=== PATIENT | male | born 1955 | race Caucasian/White ===

== ENCOUNTER 2016-08-13 16:57 | Inpatient (IN) | payer MEDICAID ==
[~2016-08-13] VITALS: Ht 177.8 cm; Wt 68.0 kg
[2016-08-13] MEDS ORDERED: Ampicillin/Sulbactam Sod 3 GM in NS 110 ML IV SCH (17:00)
[2016-08-13 17:15] VITALS: BP 104/64
[2016-08-13] MEDS ORDERED: Acetaminophen 650 MG SUPP RECTAL ONE (17:15)
[2016-08-13] MEDS ORDERED: Thiamine HCl 100 MG in D5W 55 ML IVPB ONE (17:15)
[2016-08-13] MEDS ORDERED: Thiamine HCl 100mg/ml Inj ONE (17:17)
[2016-08-13] MEDS ORDERED: Unasyn 3gm Inj ONE (17:17)
[2016-08-13 17:28] LABS: MEAN CORPUSCULAR HEMOGLOBIN 30.8 PG (27.0-31.0); MEAN CORPUSCULAR HGB CONC 32.3 G/DL (32.0-36.0); MEAN CORPUSCULAR VOLUME 96 FL (80-99); MEAN PLATELET VOLUME 9.1 FL (6.5-10.1); PLATELET COUNT 245 K/UL (150-450); RED BLOOD COUNT 4.65 M/UL (4.70-6.10); RED CELL DISTRIBUTION WIDTH 14.1 % (11.6-14.8)
[2016-08-13 17:29] LABS: LYMPHOCYTES % (AUTO) 5.3 % (20.0-45.0); MONOCYTES % (AUTO) 7.6 % (1.0-10.0); NEUTROPHILS % (AUTO) 85.5 % (45.0-75.0)
[2016-08-13 17:30] LABS: BASOPHILS % (AUTO) 1.2 % (0.0-2.0); EOSINOPHILS % (AUTO) 0.5 % (0.0-3.0)
[2016-08-13] MEDS: metroNIDAZOLE 500mg 100 ML IV SCH ×2 (17:30→22:27)
[2016-08-13 17:42] LABS: TROPONIN I < 0.30 ng/mL (<=0.30)
[2016-08-13 17:45] LABS: ALANINE AMINOTRANSFERASE 41 U/L (3-41); ANION GAP 17 (5-15); ASPARTATE AMINO TRANSFERASE 247 U/L (5-40); CALCIUM 11.5 mg/dL (8.6-10.2); CARBON DIOXIDE 25 mEQ/L (20-30); CHLORIDE 95 mEQ/L (98-107); CREATININE 1.3 mg/dL (0.7-1.2); GLOMERULAR FILTRATION RATE 56.3 mL/min (>60); HEMOLYSIS 0; POTASSIUM 3.4 mEQ/L (3.4-4.9); SODIUM 137 mEQ/L (135-145)
[2016-08-13 17:48] LABS: REFLEX LACTIC ACID YES OR NO YES
[2016-08-13 17:56] LABS: CKMB < 1.5 ng/mL (< 6.7)
[2016-08-13 18:29] VITALS: BP 89/43
[2016-08-13] MEDS ORDERED: PREDNISONE20 MG ORAL (18:46)
--- NOTE | 2016-08-13 18:48 | Emergency Room Report ---
History of Present Illness General Chief Complaint: Altered Level of Consciousness Source: Patient, EMS Present Illness HPI Patient is a 61-year-old male presented after increased level of consciousness. Patient was brought in by EMS. Patient prior history of unknown type of cancer which was reportedly stage IV. Patient had the been previously ambulatory and had altered level consciousness. The patient had not been noted to be febrile. The patient was noted be less responsive than his neighbor called EMS. Allergies: Coded Allergies: No Known Allergies (Unverified , 08/13/16) Patient History Past Medical History: see triage record Reviewed Nursing Documentation: PMH: Agreed, PSxH: Agreed Nursing Documentation-PM Past Medical History: No History, Except For Hx Cancer: Yes Review of Systems All Other Systems: negative except mentioned in HPI Physical Exam Vital Signs Date Time Temp Pulse Resp B/P Pulse Ox O2 Delivery O2 Flow Rate FiO2 08/13/16 16:53 110 21 88/54 97 08/13/16 17:15 101.8 08/13/16 18:29 Nasal Cannula 2.0 Sp02 EP Interpretation: reviewed, normal General Appearance: normal inspection, well appearing, moderate distress Head: atraumatic ENT: normal ENT inspection, hearing grossly normal, normal voice Neck: normal inspection, full range of motion, supple, no bony tend Respiratory: normal inspection, lungs clear, normal breath sounds, no respiratory distress, no retraction, no wheezing Cardiovascular #1: regular rate, rhythm, no edema Gastrointestinal: normal inspection, normal bowel sounds, non tender, soft, no guarding, no hernia Genitourinary: no CVA tenderness Musculoskeletal: normal inspection, back normal, normal range of motion Neurologic: responsive, motor weakness, other - lethargic, dry mucous membranes Psychiatric: normal inspection, judgement/insight normal, mood/affect normal Skin: normal inspection, normal color, no rash Medical Decision Making Diagnostic Impression: Primary Impression: Altered level of consciousness Additional Impressions: Severe sepsis Dehydration ER Course Patient presented for altered mental status.Differential diagnosis included but was not limited to ischemic stroke, subarachnoid hemorrhage, hypoglycemia, spinal cord injury, neurodegenerative disorder, urinary tract infection, hypoxemia.Because of complexity of patient's case laboratory testing and imaging studies were ordered. The patient noted have initially low blood pressure as well as a high fever. The patient started on IV fluids and IV antibiotics. The patient is present septic. The patient was noted to have some improvement in his mental status.Patient was given IV thiamine for altered mental status. Chest x-ray one view interpreted by me showed no evidence of acute infiltrate there is noted to be some nodular lesions to the left lung. The patient started on IV fluids and given IV antibiotics. Dr. Amado Scott was contacted for inpatient management. Laboratory Tests Test 08/13/16 17:00 White Blood Count 13.0 K/UL (4.8-10.8) H Red Blood Count 4.65 M/UL (4.70-6.10) L Hemoglobin 14.4 G/DL (14.2-18.0) Hematocrit 44.4 % (42.0-52.0) Mean Corpuscular Volume 96 FL (80-99) Mean Corpuscular Hemoglobin 30.8 PG (27.0-31.0) Mean Corpuscular Hemoglobin Concent 32.3 G/DL (32.0-36.0) Red Cell Distribution Width 14.1 % (11.6-14.8) Platelet Count 245 K/UL (150-450) Mean Platelet Volume 9.1 FL (6.5-10.1) Neutrophils (%) (Auto) 85.5 % (45.0-75.0) H Lymphocytes (%) (Auto) 5.3 % (20.0-45.0) L Monocytes (%) (Auto) 7.6 % (1.0-10.0) Eosinophils (%) (Auto) 0.5 % (0.0-3.0) Basophils (%) (Auto) 1.2 % (0.0-2.0) Sodium Level 137 mEQ/L (135-145) Potassium Level 3.4 mEQ/L (3.4-4.9) Chloride Level 95 mEQ/L (98-107) L Carbon Dioxide Level 25 mEQ/L (20-30) Anion Gap 17 (5-15) H Blood Urea Nitrogen 31 mg/dL (7-23) H Creatinine 1.3 mg/dL (0.7-1.2) H Estimate Glomerular Filtration Rate 56.3 mL/min (>60) Glucose Level 99 mg/dL (74-106) Lactic Acid Level 3.10 mmol/L (0.66-2.22) H Calcium Level 11.5 mg/dL (8.6-10.2) H Total Bilirubin 1.6 mg/dL (0.0-1.2) H Direct Bilirubin 1.0 mg/dL (0.1-0.3) H Aspartate Amino Transferase (AST) 247 U/L (5-40) H Alanine Aminotransferase (ALT) 41 U/L (3-41) Alkaline Phosphatase 491 U/L (40-129) H Total Creatine Kinase 222 U/L (38-174) H Creatine Kinase MB < 1.5 ng/mL (< 6.7) Creatine Kinase MB Relative Index Troponin I < 0.30 ng/mL (<=0.30) Total Protein 6.0 g/dL (6.6-8.7) L Albumin 3.1 g/dL (3.5-5.2) L Globulin 2.9 g/dL Albumin/Globulin Ratio 1.0 (1.0-2.7) EKG Diagnostic Results Rate: normal Rhythm: NSR ST Segments: other - inferior lateral st depression Chest X-Ray Diagnostic Results EP Interpretation: Yes Findings: no consolidation, no effusion, no pneumothorax Number of Views: 1 Last Vital Signs Date Time Temp Pulse Resp B/P Pulse Ox O2 Delivery O2 Flow Rate FiO2 08/13/16 18:29 100.0 85 20 89/43 95 Nasal Cannula 2.0 Status: unchanged Disposition: ADMITTED INPATIENT Condition: Serious Referrals: NOT CHOSEN IPA/,REFERRING (PCP) Barrington Thomas Aug 13, 2016 18:48
[2016-08-13 19:19] VITALS: BP 95/56
[2016-08-13 20:12] VITALS: BP 73/35
[2016-08-13 20:20] VITALS: BP 89/42
[2016-08-13] MEDS ORDERED: Miralax 17gm pkt ORAL PRN (20:30)
[2016-08-13] MEDS ORDERED: Zolpidem 5mg tab ORAL PRN (20:30)
[2016-08-13] MEDS ORDERED: LORazepam Inj 2mg/ml 1ml IV PRN (20:30)
[2016-08-13 21:37] LABS: KETONES,URINE 1+ (NEGATIVE); LEUKOCYTE ESTERASE ,URINE 1+ (NEGATIVE); NITRITE,URINE NEGATIVE (NEGATIVE); PH,URINE 5 (4.5-8.0); PROTEIN,URINE 3+ (NEGATIVE); UROBILINOGEN,URINE 8 MG/DL (0.0-1.0)
[2016-08-13 21:40] LABS: APPEARANCE,URINE SLIGHTLY CLOUDY
[2016-08-13 22:06] VITALS: BP 91/61
[2016-08-13 22:14] LABS: BACTERIA,URINE MANY /HPF; ICTOTEST POSITIVE; SQUAMOUS EPITHELIAL CELL,UR MODERATE /LPF (NONE/OCC)
[2016-08-13] MEDS: Morphine Sulfate 2mg/ml Inj IVP PRN (22:27)
[2016-08-13] MEDS: Heparin 5000 units/ml inj SUBQ SCH (22:32)
[2016-08-14] MEDS: Mylanta II UD 30ml ORAL PRN ×3 (00:50→14:23)
[2016-08-14] MEDS: Morphine Sulfate 2mg/ml Inj IVP PRN ×4 (03:20→22:05)
[2016-08-14 04:15] VITALS: BP 98/52
[2016-08-14 07:34] VITALS: BP 127/74
[2016-08-14 07:52] LABS: MEAN CORPUSCULAR HEMOGLOBIN 30.5 PG (27.0-31.0); MEAN CORPUSCULAR HGB CONC 32.9 G/DL (32.0-36.0); MEAN CORPUSCULAR VOLUME 93 FL (80-99); PLATELET COUNT 220 K/UL (150-450); RED BLOOD COUNT 4.41 M/UL (4.70-6.10); RED CELL DISTRIBUTION WIDTH 14.2 % (11.6-14.8); WHITE BLOOD COUNT 20.2 K/UL (4.8-10.8)
[2016-08-14 07:59] LABS: MAGNESIUM 1.5 mg/dL (1.7-2.5); PHOSPHORUS 3.4 mg/dL (2.5-4.8); URIC ACID 5.6 mg/dL (3.0-7.5)
[2016-08-14 08:09] LABS: CORTISOL LC 10.8 ug/dL (.)
[2016-08-14] MEDS: Heparin 5000 units/ml inj SUBQ SCH ×2 (08:19→20:28)
[2016-08-14 08:24] LABS: HEMOGLOBIN A1C 5.2 % (< 6.0)
[2016-08-14 08:26] LABS: ALANINE AMINOTRANSFERASE 42 U/L (3-41); ANION GAP 18 (5-15); ASPARTATE AMINO TRANSFERASE 264 U/L (5-40); CALCIUM 11.5 mg/dL (8.6-10.2); CARBON DIOXIDE 24 mEQ/L (20-30); CHLORIDE 95 mEQ/L (98-107); CREATININE 1.2 mg/dL (0.7-1.2); GLOMERULAR FILTRATION RATE > 60 mL/min (>60); POTASSIUM 3.6 mEQ/L (3.4-4.9); SODIUM 137 mEQ/L (135-145); TOTAL PROTEIN 5.6 g/dL (6.6-8.7)
[2016-08-14] MEDS ORDERED: Tubing IV Secondary IV ONE (09:10)
[2016-08-14] MEDS ORDERED: NS 275ml ONE (09:10)
[2016-08-14 09:42] LABS: BAND NEUTROPHILS % (MANUAL) 9 % (0-8); LYMPHOCYTES % (MANUAL) 6 % (20-45); NEUTROPHILS % (MANUAL) 75 % (45-75); TOTAL CELLS COUNTED 100
[2016-08-14 09:43] LABS: ANISOCYTOSIS 1+; BASOPHILS % (MANUAL) 0 % (0-2); EOSINOPHILS % (MANUAL) 0 % (0-3); PLATELET ESTIMATE ADEQUATE; PLATELET MORPHOLOGY NORMAL
--- NOTE | 2016-08-14 09:56 | Diagnostic Imaging Report ---
Indication: Shortness of breath Technique: Single portable AP view of the chest. Findings: Comparison: None. 1 cm calcified nodule left lung base. 1 cm calcified nodule left hilum. Aortic arch mildly calcified. The bones and extra pulmonary soft tissues, cardiomediastinal silhouette, pulmonary vasculature and parenchyma, and pleural surfaces are otherwise unremarkable. IMPRESSION: No evidence of acute cardiopulmonary disease Calcified old granulomatous disease Aortosclerosis.
[2016-08-14] MEDS ORDERED: Morphine Sulfate 2mg/ml Inj IVP ONE (10:15)
[2016-08-14 10:37] LABS: CHOLESTEROL 64 mg/dL (< 200); CHOLESTEROL/HDL RATIO 4.6 (3.3-4.4); LDL CHOLESTEROL (CALC.) 29 mg/dL (60-99)
[2016-08-14 11:35] VITALS: BP 106/61
--- NOTE | 2016-08-14 13:30 | Consultation ---
History of Present Illness General Date patient seen: Aug 14, 2016 Time patient seen: 13:00 Chief Complaint: Altered Level of Consciousness Referring physician: dr Scott Reason for Consultation: in hospital management Present Illness HPI 61-year-old male with stage 4 advanced metastatic cancer of unknown origin, presented with increased level of consciousness. Patient was brought in by EMS. after his neighbors were concerned with change in LOC and called paramedics Patient had been previously ambulatory. Workup i ED revealed leukocytosis elevated lactic acid, hypercalcemia, hypomagnesemia, elevated LFT/bili CXR negative UA with evidence of UTI patient was transferred to [facility] for further management leukocytosis with trend up today, afebrile, intractable pain, not relieved with current regimen Allergies: Coded Allergies: No Known Allergies (Unverified , 08/13/16) Medication History Scheduled Prednisone* (Prednisone*), 20 MG ORAL DAILY, (Reported) Patient History History Provided By: Patient Healthcare decision maker N Resuscitation status Full Code Advanced Directive on File Past Medical/Surgical History Past Medical/Surgical History: (1) Metastatic cancer Review of Systems Constitutional: Reports: weakness Eye: Reports: no symptoms ENT: Reports: no symptoms Respiratory: Reports: no symptoms Cardiovascular: Reports: no symptoms Gastrointestinal: Reports: abdominal pain Genitourinary: Reports: frequency Skin: Reports: no symptoms Psychiatric: Reports: anxiety, depressed feelings Endocrine: Reports: no symptoms Hematologic/Lymphatic: Reports: no symptoms Physical Exam General Appearance: alert, cachetic Lines, tubes and drains: peripheral HEENT: normocephalic, atraumatic, anicteric, mucous membranes moist Neck: non-tender, normal alignment Respiratory/Chest: chest wall non-tender, lungs clear, no respiratory distress , no accessory muscle use Cardiovascular/Chest: normal rate, regular rhythm Abdomen: normal bowel sounds - mild difsued tenderness, no rebound, no guarding , soft Extremities: normal range of motion, no calf tenderness, normal capillary refill Skin Exam: warm/dry Neurologic: alert, oriented x 3, responsive Musculoskeletal: normal muscle bulk Last 24 Hour Vital Signs Date Time Temp Pulse Resp B/P Pulse Ox O2 Delivery O2 Flow Rate FiO2 08/14/16 13:02 97.7 08/14/16 11:35 97.7 77 18 106/61 95 Room Air 08/14/16 10:49 97.7 08/14/16 08:00 78 08/14/16 07:34 97.0 80 18 127/74 95 Room Air 08/14/16 04:23 72 08/14/16 04:15 97.0 62 20 98/52 95 Room Air 08/13/16 23:37 74 08/13/16 22:06 98.4 80 19 91/61 93 Room Air 08/13/16 20:55 100.0 80 16 89/42 98 Nasal Cannula 2.0 08/13/16 20:20 80 16 89/42 98 Nasal Cannula 2.0 08/13/16 20:12 86 16 73/35 98 Nasal Cannula 2.0 08/13/16 19:19 85 16 95/56 95 Nasal Cannula 2.0 08/13/16 18:29 100.0 85 20 89/43 95 Nasal Cannula 2.0 08/13/16 17:59 100.0 08/13/16 17:15 101.8 90 21 104/64 97 08/13/16 16:53 110 21 88/54 97 Intake and Output 08/13/16 08/14/16 19:00 07:00 Intake Total 2210 ml 1605 ml Output Total 400 ml Balance 2210 ml 1205 ml Intake Oral 505 ml IV Total 2210 ml 1100 ml Output Urine Total 400 ml # Voids 50 Laboratory Tests Test 08/13/16 17:00 08/13/16 19:20 08/13/16 20:40 08/14/16 06:32 White Blood Count 13.0 K/UL (4.8-10.8) H 20.2 K/UL (4.8-10.8) #H Red Blood Count 4.65 M/UL (4.70-6.10) L 4.41 M/UL (4.70-6.10) L Hemoglobin 14.4 G/DL (14.2-18.0) 13.5 G/DL (14.2-18.0) L Hematocrit 44.4 % (42.0-52.0) 40.9 % (42.0-52.0) L Mean Corpuscular Volume 96 FL (80-99) 93 FL (80-99) Mean Corpuscular Hemoglobin 30.8 PG (27.0-31.0) 30.5 PG (27.0-31.0) Mean Corpuscular Hemoglobin Concent 32.3 G/DL (32.0-36.0) 32.9 G/DL (32.0-36.0) Red Cell Distribution Width 14.1 % (11.6-14.8) 14.2 % (11.6-14.8) Platelet Count 245 K/UL (150-450) 220 K/UL (150-450) Mean Platelet Volume 9.1 FL (6.5-10.1) 9.0 FL (6.5-10.1) Neutrophils (%) (Auto) 85.5 % (45.0-75.0) H % (45.0-75.0) Lymphocytes (%) (Auto) 5.3 % (20.0-45.0) L % (20.0-45.0) Monocytes (%) (Auto) 7.6 % (1.0-10.0) % (1.0-10.0) Eosinophils (%) (Auto) 0.5 % (0.0-3.0) % (0.0-3.0) Basophils (%) (Auto) 1.2 % (0.0-2.0) % (0.0-2.0) Sodium Level 137 mEQ/L (135-145) 137 mEQ/L (135-145) Potassium Level 3.4 mEQ/L (3.4-4.9) 3.6 mEQ/L (3.4-4.9) Chloride Level 95 mEQ/L (98-107) L 95 mEQ/L (98-107) L Carbon Dioxide Level 25 mEQ/L (20-30) 24 mEQ/L (20-30) Anion Gap 17 (5-15) H 18 (5-15) H Blood Urea Nitrogen 31 mg/dL (7-23) H 31 mg/dL (7-23) H Creatinine 1.3 mg/dL (0.7-1.2) H 1.2 mg/dL (0.7-1.2) Estimat Glomerular Filtration Rate 56.3 mL/min (>60) > 60 mL/min (>60) Glucose Level 99 mg/dL (74-106) 78 mg/dL (74-106) Plasma/Serum Osmolality Pending Lactic Acid Level 3.10 mmol/L (0.66-2.22) H 2.20 mmol/L (0.66-2.22) Calcium Level 11.5 mg/dL (8.6-10.2) H 11.5 mg/dL (8.6-10.2) H Total Bilirubin 1.6 mg/dL (0.0-1.2) H 1.6 mg/dL (0.0-1.2) H Direct Bilirubin 1.0 mg/dL (0.1-0.3) H 1.0 mg/dL (0.1-0.3) H Aspartate Amino Transf (AST/SGOT) 247 U/L (5-40) H 264 U/L (5-40) H Alanine Aminotransferase (ALT/SGPT) 41 U/L (3-41) 42 U/L (3-41) H Alkaline Phosphatase 491 U/L (40-129) H 412 U/L (40-129) H Total Creatine Kinase 222 U/L (38-174) H 386 U/L (38-174) H Creatine Kinase MB < 1.5 ng/mL (< 6.7) Creatine Kinase MB Relative Index Troponin I < 0.30 ng/mL (<=0.30) Total Protein 6.0 g/dL (6.6-8.7) L 5.6 g/dL (6.6-8.7) L Albumin 3.1 g/dL (3.5-5.2) L 2.8 g/dL (3.5-5.2) L Globulin 2.9 g/dL 2.8 g/dL Albumin/Globulin Ratio 1.0 (1.0-2.7) 1.0 (1.0-2.7) Free Triiodothyronine Pending Cortisol 10.8 ug/dL (.) Urine Color Aracelis Urine Appearance Slightly cloudy Urine pH 5 (4.5-8.0) Urine Specific [place] 1.015 (1.005-1.035) Urine Protein 3+ (NEGATIVE) H Urine Glucose (UA) Negative (NEGATIVE) Urine Ketones 1+ (NEGATIVE) H Urine Occult Blood 2+ (NEGATIVE) H Urine Nitrite Negative (NEGATIVE) Urine Bilirubin 2+ (NEGATIVE) H Urine Ictotest Positive Urine Urobilinogen 8 MG/DL (0.0-1.0) H Urine Leukocyte Esterase 1+ (NEGATIVE) H Urine RBC 5-10 /HPF (0 - 0) H Urine WBC 10-15 /HPF (0 - 0) H Urine Squamous Epithelial Cells Moderate /LPF (NONE/OCC) H Urine Bacteria Many /HPF (NONE) H Urine Eosinophils None seen Urine Random Sodium 17 mmol/L Urine Random Chloride 20 mmol/L Urine Potassium Timed 52 mmol/L Differential Total Cells Counted 100 Neutrophils % (Manual) 75 % (45-75) Lymphocytes % (Manual) 6 % (20-45) L Monocytes % (Manual) 10 % (1-10) Eosinophils % (Manual) 0 % (0-3) Basophils % (Manual) 0 % (0-2) Band Neutrophils 9 % (0-8) H Platelet Estimate Adequate Platelet Morphology Normal Anisocytosis 1+ Hemoglobin A1c 5.2 % (< 6.0) Uric Acid 5.6 mg/dL (3.0-7.5) Phosphorus Level 3.4 mg/dL (2.5-4.8) Magnesium Level 1.5 mg/dL (1.7-2.5) L Triglycerides Level 104 mg/dL (< 150) Cholesterol Level 64 mg/dL (< 200) LDL Cholesterol 29 mg/dL (60-99) L HDL Cholesterol 14 mg/dL (> 60) Cholesterol/HDL Ratio 4.6 (3.3-4.4) H Thyroid Stimulating Hormone (TSH) 1.800 uIU/mL (0.300-4.500) Free Thyroxine 1.06 ng/dL (0.86-1.85) Microbiology Date/Time Source Procedure Growth Status 08/13/16 20:40 Urine,Clean Catch Urine Culture - Preliminary NO GROWTH Resulted Height (Feet): 5 Height (Inches): 10.00 Weight (Pounds): 150 Medications Current Medications Medications (Trade) Dose Ordered Sig/Melvin Route PRN Reason Start Time Stop Time Status Last Admin Dose Admin Acetaminophen (Tylenol) 650 mg Q4H PRN ORAL fever 08/13/16 20:30 09/12/16 20:29 Al Hydroxide/Mg Hydroxide (Mylanta II) 30 ml Q6H PRN ORAL dyspepsia 08/13/16 20:30 09/12/16 20:29 08/14/16 08:30 Clonidine HCl (Catapres) 0.1 mg Q4H PRN ORAL For High Blood Pressure 08/13/16 20:30 09/12/16 20:29 Dextrose (Dextrose 50%) STAT PRN IV Hypoglycemia 08/13/16 20:30 09/12/16 20:29 Heparin Sodium (Porcine) (Heparin 5000 units/ml) 5,000 units EVERY 12 HOURS SUBQ 08/13/16 21:00 09/12/16 20:59 08/14/16 08:19 Lorazepam (Ativan 2mg/ml 1ml) 0.5 mg Q4H PRN IV For Anxiety 08/13/16 20:30 08/20/16 20:29 Morphine Sulfate (Morphine Sulfate) 2 mg Q3H PRN IVP For Pain 08/14/16 14:00 08/21/16 13:59 Ondansetron HCl (Zofran) 4 mg Q6H PRN IVP Nausea & Vomiting 08/13/16 20:30 09/12/16 20:29 Polyethylene Glycol (Miralax) 17 gm HSPRN PRN ORAL Constipation 08/13/16 20:30 09/12/16 20:29 Zolpidem Tartrate (Ambien) 5 mg HSPRN PRN ORAL Insomnia 08/13/16 20:30 09/12/16 20:29 Assessment/Plan Assessment/Plan ASSESSMENT advanced metastic cancer stage 4 sepsis possible UTI lactic acidosis acute encephalopathy dehydration hypercalcemia of malignancy elevated transaminase DIAZ 2 to dehydration intractable pain PLAN OF CARE tele start IVF monitor renal parameters , lytes replace Mg give Aredia Venous Duplex BLE pain management, increase dose pain specialist as per PMD O2 HHN prn CXR negative empiric abx ; fup with cx DVT prophylaxis recommend to get CT chest abdomen and pelvis to delineate origin of malignancy, however will hydrate first, to get creat down to normal and then get CT with contrast patient apparently was on hospice service prior to admission and wants to go back to hospice afterwards case discussed and evaluated by supervising physician Anatoly ([email or web address])Meenakshi NP Aug 14, 2016 13:30
--- NOTE | 2016-08-14 13:50 | History & Physical ---
History and Physical History & Physicial Dictated for Int Med-Dr Scott no. [id number]. LAMAR HERRING Aug 14, 2016 13:50
[2016-08-14] MEDS ORDERED: cefTRIAXone 1 GM in D5W 55 ML IVPB SCH (14:00)
[2016-08-14] MEDS ORDERED: Morphine Sulfate 2mg/ml Inj IVP PRN (14:00)
[2016-08-14] MEDS ORDERED: Cefepime HCl 1 GM in D5W 110 ML IVPB SCH (14:00)
[2016-08-14 14:12] LABS: FREE TRIIODOTHYRONINE 2.6 pg/mL (2.0-4.4)
[2016-08-14] MEDS ORDERED: Vancomycin 1250mg/D5W 275ml IVPB ONE ×2 (16:00)
[2016-08-14 16:29] VITALS: BP_SYST 107; BP_SYST 121; BP_DIAS 68; BP_DIAS 76
[2016-08-14] MEDS ORDERED: Pamidronate Disodium Inj 60 MG in Sodium Chloride 550 ML IVPB ONE (17:30)
[2016-08-14 18:05] LABS: AMMONIA 47 umol/L (16-60)
[2016-08-14 18:09] LABS: ANION GAP 16 (5-15); CALCIUM 11.3 mg/dL (8.6-10.2); CARBON DIOXIDE 24 mEQ/L (20-30); CHLORIDE 97 mEQ/L (98-107); CREATININE 0.8 mg/dL (0.7-1.2); GLOMERULAR FILTRATION RATE > 60 mL/min (>60); HEMOLYSIS 0; POTASSIUM 3.4 mEQ/L (3.4-4.9); SODIUM 137 mEQ/L (135-145)
[2016-08-14] MEDS ORDERED: Mylanta II UD 30ml ORAL PRN (19:15)
[2016-08-14] MEDS ORDERED: LORazepam Inj 2mg/ml 1ml IV PRN (19:30)
[2016-08-14 20:00] VITALS: BP 116/70
[2016-08-14] MEDS ORDERED: Miralax 17gm pkt ORAL PRN (20:30)
--- NOTE | 2016-08-14 20:58 | History and Physical Report ---
DATE OF ADMISSION: 08/13/2016 CHIEF COMPLAINT: The patient is a 61-year-old white male with history of metastatic prostate cancer, who presents with chief complaint of syncopal episode. HISTORY OF PRESENT ILLNESS: The patient lives alone. The patient has a history of prostate cancer with metastases. The patient states he is currently on chemotherapy for prostate cancer. The patient was brought in by a friend yesterday, August 13, 2016. The friend became concerned after not speaking to the patient for one day. The patient was found unconscious by the friend. EMS was called. The patient was transported to [facility]. The patient was found to have urinary tract infection. The patient is admitted with syncopal episode and probable sepsis secondary to urinary tract infection. REVIEW OF SYSTEMS: Constitutional: The patient denies weight loss or weight gain. The patient denies fevers or chills. HEENT: The patient denies ear or throat pain. Cardiovascular: The patient denies palpitations or chest pain. Chest: The patient denies wheeze or shortness of breath. Abdomen: The patient denies nausea, vomiting, diarrhea, or constipation. Genitourinary: The patient denies dysuria or increased frequency of urination. Neuromuscular: The patient complains of syncopal episode. The patient denies seizures or generalized weakness. PAST MEDICAL HISTORY: Significant for prostate cancer with metastases. PAST SURGICAL HISTORY: The patient denies. CURRENT MEDICATION: Prednisone 20 mg one tablet p.o. daily. ALLERGIES: No known drug allergies. SOCIAL HISTORY: The patient is single and lives alone. The patient admits to tobacco use of one pack per day. The patient denies alcohol use. PHYSICAL EXAMINATION: VITAL SIGNS: Temperature 97.0, respirations 18, pulse 80, and blood pressure 122/74. GENERAL: The patient is a well-developed and well-nourished thin-appearing white male, in no apparent distress. HEENT: Eyes, pupils are equal and responsive to light and accommodation. Extraocular movements are intact. NECK: Supple without lymphadenopathy. CHEST: Lungs are clear to auscultation bilaterally without wheezes or rales. CARDIOVASCULAR: Regular rhythm and rate. S1 and S2 normal without murmurs, rubs, or gallops. ABDOMEN: Soft, slightly distended with positive bowel sounds. No evidence of hepatosplenomegaly. Currently, no rebound or guarding. EXTREMITIES: Negative for clubbing, cyanosis, or edema. RECTAL/GENITAL: Refused. NEUROLOGICAL: Cranial nerves II through XII are grossly intact without focal deficits. Motor strength is 5/5 bilaterally. Deep tendon reflexes are 2+ plantar. LABORATORY STUDIES: WBC 13.2, hemoglobin 14.4, hematocrit 44.4, and platelets 245,000. Sodium 137, potassium 3.4, chloride 95, CO2 25, BUN 31, and creatinine 1.3. Glucose 99. Liver function tests were elevated with AST of 247, alkaline phosphatase 491, total bilirubin 1.6, and direct bilirubin 1.0. Troponin is less than 0.3. Urinalysis showed 2+ occult blood, 1+ ketones, 2+ bilirubin, and 1+ leukocyte esterase with 10 to 15 wbc's. ASSESSMENT: This is a 61-year-old white male: 1. Altered mental status. 2. Syncopal episode. 3. Prostate cancer with metastases. 4. Elevated liver function tests. 5. Urinary tract infection. 6. Probable sepsis. TREATMENT: 1. Syncopal episode/altered mental status. This may be secondary to dehydration versus severe sepsis. The patient has been started empirically on intravenous vancomycin and cefepime. The patient appears to be clearing at this point. 2. Prostate cancer with metastases. Hematology/Oncology consultation will be obtained with Dr. Ferro. The patient states he is currently on chemotherapy. We will follow recommendations of Oncology. 3. Elevated liver function tests. Gastroenterology consultation obtained with Dr. Randolph Goldman. A CT scan of the abdomen is pending. The patient may be obstructed given the abnormal liver function tests. We will follow recommendations of Gastroenterology. 4. Urinary tract infection/sepsis. As above, the patient has been started empirically on vancomycin and cefepime. Urine culture is pending. Michael Martin M.D. DR: KAMRON JOB#: [id number] CC:
[2016-08-14] MEDS ORDERED: Heparin 5000 units/ml inj SUBQ SCH (21:00)
[2016-08-14] MEDS ORDERED: Zolpidem 5mg tab ORAL PRN (21:00)
--- NOTE | 2016-08-14 22:48 | Consultation ---
DATE OF CONSULTATION: 08/14/2016 HEMATOLOGY/ONCOLOGY CONSULTATION CONSULTING PHYSICIAN: Marlon Ferro M.D. REFERRING PHYSICIANS: Michael Martin M.D. and Amado Scott M.D. REASON FOR CONSULTATION: Metastatic prostate cancer. CURRENT COMPLAINT AND HISTORY OF PRESENT ILLNESS: Dear Dr. Martin and Dr Scott, Today, I had an opportunity to see one of your patients, who as you well aware 61-year-old delightful gentleman with a past medical history remarkable for metastatic cancer, unknown origin. The patient was brought through emergency room by ambulance. Workup revealed hypercalcemia and elevated LFTs. He was ambulatory and he was encephalopathic, altered mental status. PAST MEDICAL HISTORY: none. CURRENT MEDICATIONS: Prednisone. FAMILY HISTORY: Noncontributory. SOCIAL HISTORY: No history of smoking. No history of alcohol abuse. No history of illicit drugs. REVIEW OF SYSTEMS: Unobtainable secondary to the patient's confusion. PHYSICAL EXAMINATION: VITAL SIGNS: T-max 97, respiratory rate 20, heart rate 80, and blood pressure 130/80. HEENT: Head, normocephalic and atraumatic. NECK: Supple. No thyroid enlargement. No lymphadenopathy. LUNGS: Decreased bowel sounds bilaterally with few rhonchi in the bases. HEART: S1 and S2 regular. ABDOMEN: Full. Benign. No organomegaly present. Bowel sounds are present. EXTREMITIES: No cyanosis, clubbing, or edema. DIAGNOSTIC DATA: Chest x-ray revealed 1 cm calcified nodule in the left lung at the base. LABORATORY DATA: Labs revealed creatinine 1.2. Calcium 11.5. Total bilirubin 1.6 and direct bilirubin 1.0. WBC 20.2, hemoglobin 13.5, hematocrit 40.9, and platelet count 220,000. IMPRESSION: 1. Hypercalcemia. 2. History of advanced metastatic cancer, unknown origin stage IV. 3. Encephalopathy. 4. Mental status changes. 5. Bilirubinemia. 6. Leukocytosis. 7. Elevated liver function tests. 8. Failure to thrive. RECOMMENDATION: 1. CT scan chest, abdomen, and pelvis with contrast. 2. Venous Doppler bilateral lower extremities to rule out DVT. 3. Check tumor markers. 4. Heparin subcutaneous for DVT prophylaxis. 5. Antibiotic IV. 6. Rule out metastatic bony disease. 7. Rule out multiple myeloma with bony lesions. 8. Check parathyroid hormone, rule out parathyroid adenoma. 9. Skin care. 10. Nutrition. 11. Close followup. Marlon Ferro MD DR: SANDEEP JOB#: [id number] CC:
[2016-08-15] VITALS (30 sets, daily range): BP systolic 46–122; BP diastolic 16–79
[2016-08-15] MEDS: Cefepime HCl 1 GM in D5W 110 ML IVPB SCH ×4 (01:28→21:15)
[2016-08-15] MEDS: Morphine Sulfate 2mg/ml Inj IVP PRN ×4 (01:28→13:08)
[2016-08-15] MEDS: Phenylephrine 50 MG in D5W 245 ML IV SCH (03:00)
[2016-08-15] MEDS ORDERED: Vancomycin 750mg/D5W 275ml IVPB SCH ×2 (04:00)
[2016-08-15] MEDS ORDERED: Vancomycin 750 MG in D5W 275 ML IVPB SCH ×2 (04:00→22:00)
[2016-08-15 06:15] LABS: BASOPHILS % (AUTO) 0.5 % (0.0-2.0); EOSINOPHILS % (AUTO) 0.2 % (0.0-3.0); LYMPHOCYTES % (AUTO) 11.4 % (20.0-45.0); MEAN CORPUSCULAR HEMOGLOBIN 30.6 PG (27.0-31.0); MEAN CORPUSCULAR HGB CONC 32.9 G/DL (32.0-36.0); MEAN CORPUSCULAR VOLUME 93 FL (80-99); MEAN PLATELET VOLUME 9.3 FL (6.5-10.1); MONOCYTES % (AUTO) 13.2 % (1.0-10.0); NEUTROPHILS % (AUTO) 74.7 % (45.0-75.0); PLATELET COUNT 244 K/UL (150-450); RED BLOOD COUNT 3.27 M/UL (4.70-6.10); WHITE BLOOD COUNT 15.7 K/UL (4.8-10.8)
[2016-08-15 06:33] LABS: ALANINE AMINOTRANSFERASE 39 U/L (3-41); ANION GAP 16 (5-15); ASPARTATE AMINO TRANSFERASE 208 U/L (5-40); CALCIUM 11.7 mg/dL (8.6-10.2); CARBON DIOXIDE 24 mEQ/L (20-30); CHLORIDE 100 mEQ/L (98-107); CREATININE 0.8 mg/dL (0.7-1.2); GLOMERULAR FILTRATION RATE > 60 mL/min (>60); HEMOLYSIS 1; POTASSIUM 3.9 mEQ/L (3.4-4.9); SODIUM 140 mEQ/L (135-145)
--- NOTE | 2016-08-15 08:25 | General Progress Note ---
Assessment/Plan Assessment/Plan IMPRESSION: 1. Hypercalcemia. 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 History of advanced metastatic cancer, unknown Stage - recently on chemo 3. Encephalopathy. 4. Mental status changes. 5. Bilirubinemia. 6. Leukocytosis. 7. Elevated liver function tests. 8. Failure to thrive. RECOMMENDATION: 1. CT scan chest, abdomen, and pelvis with contrast pending 2. Venous Doppler bilateral lower extremities to rule out DVT. 3. Check tumor markers. 4. Heparin subcutaneous for DVT prophylaxis. 5. Antibiotic IV. 6. Rule out metastatic bony disease. 7. Rule out multiple myeloma with bony lesions. 8. Appreciate pulm recs 9. Skin care. 10. Nutrition. 11. Follow from onc perspective Subjective Constitutional: Reports: no symptoms HEENT: Reports: no symptoms Cardiovascular: Reports: no symptoms Respiratory: Reports: no symptoms Gastrointestinal/Abdominal: Reports: no symptoms Genitourinary: Reports: no symptoms Neurologic/Psychiatric: Reports: anxiety Endocrine: Reports: no symptoms Hematologic/Lymphatic: Reports: anemia Allergies: Coded Allergies: No Known Allergies (Unverified , 08/13/16) Subjective mental status toady is better, no fevers or chills, no night sweats reported Objective Last 24 Hour Vital Signs Date Time Temp Pulse Resp B/P Pulse Ox O2 Delivery O2 Flow Rate FiO2 08/15/16 04:00 97.5 85 19 115/71 96 Room Air 08/15/16 00:00 97.9 101 19 110/71 98 Room Air 08/14/16 20:00 97.9 98 18 116/70 95 Room Air 08/14/16 16:29 97.7 84 18 121/76 95 Room Air 08/14/16 13:02 97.7 08/14/16 12:00 78 08/14/16 11:35 97.7 77 18 106/61 95 Room Air 08/14/16 10:49 97.7 Intake and Output 08/14/16 08/15/16 19:00 07:00 Intake Total 603.333 ml 928.333 ml Output Total 400 ml 1600 ml Balance 203.333 ml -671.667 ml Intake Oral 60 ml IV Total 603.333 ml 868.333 ml Output Urine Total 400 ml 1600 ml Laboratory Tests 08/14/16 17:30: Erythrocyte Sedimentation Rate 70H, D-Dimer > 9000H, Sodium Level 137, Potassium Level 3.4, Chloride Level 97L, Carbon Dioxide Level 24, Anion Gap 16H , Blood Urea Nitrogen 34H, Creatinine 0.8, Estimat Glomerular Filtration Rate > 60, Glucose Level 123H, Calcium Level 11.3H, Calcium (Send out) [Pending], Ammonia 47, Total Protein (PEP) [Pending], Albumin (PEP) [Pending], Globulin ( PEP) [Pending], Albumin/Globulin Ratio [Pending], Cvcmw-9-Tdmufjdxc [Pending], Crpwg-0-Mnbmejgly [Pending], Beta Globulins [Pending], Beta Gamma Globulin [ Pending], PEP Abnormal Protein Bands [Pending], Protein Electrophoresis Interpret [Pending], Alpha Fetoprotein [Pending], Carcinoembryonic Antigen > 1000.0H, CA 19-9 Antigen > 1000H, Free Prostate Specific Antigen [Pending], Percent Free Prostate Specific Ag [Pending], Prostate Specific Antigen Total [ Pending], Parathyroid Hormone (Intact) [Pending], Immunoglobulin G [Pending], Immunoglobulin A [Pending], Immunoglobulin M [Pending], Immunofixation Screen [ Pending], Ccdm-tecd-4-Glycoprotein I IgM Ab [Pending] 08/15/16 05:00: Sodium Level 140, Potassium Level 3.9, Chloride Level 100, Carbon Dioxide Level 24, Anion Gap 16H, Blood Urea Nitrogen 48H, Creatinine 0.8, Estimat Glomerular Filtration Rate > 60, Glucose Level 108H, Calcium Level 11.7H, Albumin/Globulin Ratio 1.0, White Blood Count 15.7H, Red Blood Count 3.27L, Hemoglobin 10.0L, Hematocrit 30.4L, Mean Corpuscular Volume 93, Mean Corpuscular Hemoglobin 30.6, Mean Corpuscular Hemoglobin Concent 32.9, Red Cell Distribution Width 14.0, Platelet Count 244, Mean Platelet Volume 9.3, Neutrophils (%) (Auto) 74.7, Lymphocytes (%) (Auto) 11.4L, Monocytes (%) (Auto) 13.2H, Eosinophils (%) (Auto ) 0.2, Basophils (%) (Auto) 0.5, Magnesium Level 2.0, Total Bilirubin 1.0, Aspartate Amino Transf (AST/SGOT) 208H, Alanine Aminotransferase (ALT/SGPT) 39, Alkaline Phosphatase 358H, Total Protein 5.0L, Albumin 2.5L, Globulin 2.5 Height (Feet): 5 Height (Inches): 10.00 Weight (Pounds): 150 General Appearance: no apparent distress EENT: TMs normal Neck: normal inspection Cardiovascular: regular rhythm Respiratory/Chest: no respiratory distress Abdomen: soft Extremities: normal range of motion Edema: 1+ Leg (L), 1+ Leg (R) Edema: mild edema Neurologic: responsive Skin: warm/dry [place] Aug 15, 2016 08:25
[2016-08-15] MEDS ORDERED: Pamidronate Disodium Inj 60 MG in Sodium Chloride 550 ML IVPB ONE ×2 (08:30→17:30)
[2016-08-15] MEDS ORDERED: NS 275ml ONE (09:01)
[2016-08-15] MEDS ORDERED: Tubing IV Secondary IV ONE (09:01)
[2016-08-15] MEDS: Heparin 5000 units/ml inj SUBQ SCH (09:17)
--- NOTE | 2016-08-15 14:07 | Pulmonology Progress Note ---
Assessment/Plan Assessment/Plan ASSESSMENT advanced metastic cancer stage 4 sepsis possible UTI lactic acidosis acute encephalopathy dehydration hypercalcemia of malignancy elevated transaminase DIAZ 2 to dehydration intractable pain PLAN OF CARE MS floor IVF monitor renal parameters , lytes s/p Arediax1 08/14 , still hypercalcemia start Calcitonin Venous Duplex BLE pain management, pain specialist as per PMD discretion O2 HHN prn CXR negative empiric abx ; fup with cx DVT prophylaxis CT chest abdomen and pelvis to delineate origin of malignancy patient apparently was on hospice service prior to admission and wants to go back to hospice afterwards heme/onco follows tumor markers case discussed and evaluated by supervising physician Subjective Allergies: Coded Allergies: No Known Allergies (Unverified , 08/13/16) Subjective leukocytosis trending down heme/onco sen and evaluated hypercalcemia persist despite Aredia x 1 dose 08/14 Objective Last 24 Hour Vital Signs Date Time Temp Pulse Resp B/P Pulse Ox O2 Delivery O2 Flow Rate FiO2 08/15/16 12:00 97.7 70 18 120/79 96 Room Air 08/15/16 08:00 97.2 94 20 122/72 96 Room Air 08/15/16 04:00 97.5 85 19 115/71 96 Room Air 08/15/16 00:00 97.9 101 19 110/71 98 Room Air 08/14/16 20:00 97.9 98 18 116/70 95 Room Air 08/14/16 16:29 97.7 84 18 121/76 95 Room Air Intake and Output 08/14/16 08/15/16 19:00 07:00 Intake Total 603.333 ml 928.333 ml Output Total 400 ml 1600 ml Balance 203.333 ml -671.667 ml Intake Oral 60 ml IV Total 603.333 ml 868.333 ml Output Urine Total 400 ml 1600 ml Objective General Appearance: alert, cachetic Lines, tubes and drains: peripheral HEENT: normocephalic, atraumatic, anicteric, mucous membranes moist Neck: non-tender, normal alignment Respiratory/Chest: chest wall non-tender, lungs clear, no respiratory distress , no accessory muscle use Cardiovascular/Chest: normal rate, regular rhythm Abdomen: normal bowel sounds - mild difsued tenderness, no rebound, no guarding , soft Extremities: normal range of motion, no calf tenderness, normal capillary refill Skin Exam: warm/dry Neurologic: alert, oriented x 3, responsive Musculoskeletal: normal muscle bulk Microbiology Date/Time Source Procedure Growth Status 08/13/16 17:10 Blood Blood Culture - Preliminary NO GROWTH AFTER 24 HOURS Resulted 08/13/16 17:00 Blood Blood Culture - Preliminary NO GROWTH AFTER 24 HOURS Resulted 08/13/16 20:40 Urine,Clean Catch Urine Culture - Preliminary NO GROWTH AFTER 24 HOURS Resulted Laboratory Tests 08/14/16 17:30: Erythrocyte Sedimentation Rate 70H, D-Dimer > 9000H, Sodium Level 137, Potassium Level 3.4, Chloride Level 97L, Carbon Dioxide Level 24, Anion Gap 16H , Blood Urea Nitrogen 34H, Creatinine 0.8, Estimat Glomerular Filtration Rate > 60, Glucose Level 123H, Calcium Level 11.3H, Calcium (Send out) [Pending], Ammonia 47, Total Protein (PEP) [Pending], Albumin (PEP) [Pending], Globulin ( PEP) [Pending], Albumin/Globulin Ratio [Pending], Cmllp-9-Qiomheiar [Pending], Thdjt-3-Lmvellcqg [Pending], Beta Globulins [Pending], Beta Gamma Globulin [ Pending], PEP Abnormal Protein Bands [Pending], Protein Electrophoresis Interpret [Pending], Alpha Fetoprotein [Pending], Carcinoembryonic Antigen > 1000.0H, CA 19-9 Antigen > 1000H, Free Prostate Specific Antigen [Pending], Percent Free Prostate Specific Ag [Pending], Prostate Specific Antigen Total [ Pending], Parathyroid Hormone (Intact) [Pending], Immunoglobulin G [Pending], Immunoglobulin A [Pending], Immunoglobulin M [Pending], Immunofixation Screen [ Pending], Fcke-zvqv-4-Glycoprotein I IgM Ab [Pending] 08/15/16 05:00: Sodium Level 140, Potassium Level 3.9, Chloride Level 100, Carbon Dioxide Level 24, Anion Gap 16H, Blood Urea Nitrogen 48H, Creatinine 0.8, Estimat Glomerular Filtration Rate > 60, Glucose Level 108H, Calcium Level 11.7H, Albumin/Globulin Ratio 1.0, White Blood Count 15.7H, Red Blood Count 3.27L, Hemoglobin 10.0L, Hematocrit 30.4L, Mean Corpuscular Volume 93, Mean Corpuscular Hemoglobin 30.6, Mean Corpuscular Hemoglobin Concent 32.9, Red Cell Distribution Width 14.0, Platelet Count 244, Mean Platelet Volume 9.3, Neutrophils (%) (Auto) 74.7, Lymphocytes (%) (Auto) 11.4L, Monocytes (%) (Auto) 13.2H, Eosinophils (%) (Auto ) 0.2, Basophils (%) (Auto) 0.5, Magnesium Level 2.0, Total Bilirubin 1.0, Aspartate Amino Transf (AST/SGOT) 208H, Alanine Aminotransferase (ALT/SGPT) 39, Alkaline Phosphatase 358H, Total Protein 5.0L, Albumin 2.5L, Globulin 2.5 Current Medications Medications (Trade) Dose Ordered Sig/Melvin Route PRN Reason Start Time Stop Time Status Last Admin Dose Admin Acetaminophen (Tylenol) 650 mg Q4H PRN ORAL T>100.5 08/14/16 19:15 09/13/16 19:14 Al Hydroxide/Mg Hydroxide (Mylanta II) 30 ml Q6H PRN ORAL dyspepsia 08/14/16 19:15 09/13/16 19:14 08/15/16 01:34 Cefepime HCl 1 gm/ Dextrose 110 ml @ 220 mls/hr Q12HR@0200,1400 IVPB 08/15/16 02:00 08/22/16 01:59 08/15/16 01:28 Clonidine HCl (Catapres) 0.1 mg Q4H PRN ORAL SBP>160 08/14/16 19:15 09/13/16 19:14 Dextrose (Dextrose 50%) STAT PRN IV Hypoglycemia 08/14/16 19:15 09/13/16 19:14 Heparin Sodium (Porcine) (Heparin 5000 units/ml) 5,000 units EVERY 12 HOURS SUBQ 08/14/16 21:00 09/13/16 20:59 08/15/16 09:17 Lorazepam (Ativan 2mg/ml 1ml) 0.5 mg Q4H PRN IV For Anxiety 08/14/16 19:30 08/21/16 19:29 Morphine Sulfate (Morphine Sulfate) 2 mg Q3H PRN IVP PAIN 4-10 08/14/16 19:15 08/21/16 19:14 08/15/16 13:08 Ondansetron HCl (Zofran) 4 mg Q6H PRN IVP Nausea & Vomiting 4/1/17 19:15 09/13/16 19:14 Polyethylene Glycol (Miralax) 17 gm BEDTIME ORAL 08/15/16 21:00 09/14/16 20:59 Polyethylene Glycol (Miralax) 17 gm HSPRN PRN ORAL Constipation 08/14/16 20:30 09/13/16 20:29 Sodium Chloride 1,000 ml @ 75 mls/hr [id number] IV 08/14/16 19:15 09/13/16 19:14 08/14/16 20:27 Vancomycin HCl (Vanco rx to dose) 1 ea DAILY PRN MISC Per rx protocol 08/14/16 19:15 09/13/16 19:14 Vancomycin HCl/ Dextrose (Vancomycin/D5W) 275 ml @ 183.708 mls/hr Q12HR@0400,1600 IVPB 08/15/16 04:00 08/20/16 03:59 08/15/16 03:31 Zolpidem Tartrate (Ambien) 5 mg HSPRN PRN ORAL Insomnia 08/14/16 21:00 09/13/16 20:59 Anatoly (Demetrius)Meenakshi [employer] Aug 15, 2016 14:07
--- NOTE | 2016-08-15 14:57 | Internal Med Progress Note ---
Subjective Date of Service: Aug 15, 2016 Physician Name Lamar Herring Attending Physician Amado Scott MD Current Medications Medications (Trade) Dose Ordered Sig/Melvin Route PRN Reason Start Time Stop Time Status Last Admin Dose Admin Acetaminophen (Tylenol) 650 mg Q4H PRN ORAL T>100.5 08/14/16 19:15 09/13/16 19:14 Al Hydroxide/Mg Hydroxide (Mylanta II) 30 ml Q6H PRN ORAL dyspepsia 08/14/16 19:15 09/13/16 19:14 08/15/16 01:34 Calcitonin Bowie (Miacalcin) 1 sprays DAILY NASAL 08/16/16 09:00 09/15/16 08:59 Cefepime HCl 1 gm/ Dextrose 110 ml @ 220 mls/hr Q12HR@0200,1400 IVPB 08/15/16 02:00 08/22/16 01:59 08/15/16 14:20 Clonidine HCl (Catapres) 0.1 mg Q4H PRN ORAL SBP>160 08/14/16 19:15 09/13/16 19:14 Dextrose (Dextrose 50%) STAT PRN IV Hypoglycemia 08/14/16 19:15 09/13/16 19:14 Heparin Sodium (Porcine) (Heparin 5000 units/ml) 5,000 units EVERY 12 HOURS SUBQ 08/14/16 21:00 09/13/16 20:59 08/15/16 09:17 Lorazepam (Ativan 2mg/ml 1ml) 0.5 mg Q4H PRN IV For Anxiety 08/14/16 19:30 08/21/16 19:29 Morphine Sulfate (Morphine Sulfate) 2 mg Q3H PRN IVP PAIN 4-10 08/14/16 19:15 08/21/16 19:14 08/15/16 13:08 Ondansetron HCl (Zofran) 4 mg Q6H PRN IVP Nausea & Vomiting 08/14/16 19:15 09/13/16 19:14 Polyethylene Glycol (Miralax) 17 gm BEDTIME ORAL 08/15/16 21:00 09/14/16 20:59 Polyethylene Glycol (Miralax) 17 gm HSPRN PRN ORAL Constipation 08/14/16 20:30 09/13/16 20:29 Polyethylene Glycol (Miralax) 17 gm ONCE ONCE ORAL 08/15/16 16:00 08/15/16 16:01 Sodium Chloride 1,000 ml @ 75 mls/hr [id number] IV 08/14/16 19:15 09/13/16 19:14 08/14/16 20:27 Vancomycin HCl (Vanco rx to dose) 1 ea DAILY PRN MISC Per rx protocol 08/14/16 19:15 09/13/16 19:14 Vancomycin HCl/ Dextrose (Vancomycin/D5W) 275 ml @ 183.708 mls/hr Q12HR@0400,1600 IVPB 08/15/16 04:00 08/20/16 03:59 08/15/16 03:31 Zolpidem Tartrate (Ambien) 5 mg HSPRN PRN ORAL Insomnia 08/14/16 21:00 09/13/16 20:59 Allergies: Coded Allergies: No Known Allergies (Unverified , 08/13/16) ROS Limited/Unobtainable: No Constitutional: Reports: no symptoms HEENT: Reports: no symptoms Cardiovascular: Reports: no symptoms Respiratory: Reports: no symptoms Gastrointestinal/Abdominal: Reports: no symptoms Genitourinary: Reports: no symptoms Neurologic/Psychiatric: Reports: no symptoms Subjective 61 YO M with prostate cancer admitted with syncope. Await CT chest/abdomen/ pelvis. Cover for Int Quinten-Dr Scott. Objective Last Vital Signs Date Time Temp Pulse Resp B/P Pulse Ox O2 Delivery O2 Flow Rate FiO2 08/15/16 12:00 97.7 70 18 120/79 96 Room Air 08/13/16 20:55 2.0 General Appearance: alert, cachetic, thin EENT: PERRL/EOMI, normal ENT inspection Neck: non-tender, normal alignment, supple Cardiovascular: normal peripheral pulses, normal rate, regular rhythm, no gallop/murmur, no JVD Respiratory/Chest: chest wall non-tender, lungs clear, normal breath sounds, no respiratory distress, no accessory muscle use Abdomen: normal bowel sounds, non tender, soft, no organomegaly, no mass Extremities: normal range of motion, non-tender Edema: trace edema, mild edema 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, no motor/sensory deficits Skin: normal pigmentation, warm/dry Laboratory Tests Test 08/14/16 17:30 08/15/16 05:00 Erythrocyte Sedimentation Rate 70 MM/HR (0-20) H D-Dimer > 9000 ng/mL (<500) H Sodium Level 137 mEQ/L (135-145) 140 mEQ/L (135-145) Potassium Level 3.4 mEQ/L (3.4-4.9) 3.9 mEQ/L (3.4-4.9) Chloride Level 97 mEQ/L (98-107) L 100 mEQ/L (98-107) Carbon Dioxide Level 24 mEQ/L (20-30) 24 mEQ/L (20-30) Anion Gap 16 (5-15) H 16 (5-15) H Blood Urea Nitrogen 34 mg/dL (7-23) H 48 mg/dL (7-23) H Creatinine 0.8 mg/dL (0.7-1.2) 0.8 mg/dL (0.7-1.2) Estimat Glomerular Filtration Rate > 60 mL/min (>60) > 60 mL/min (>60) Glucose Level 123 mg/dL (74-106) H 108 mg/dL (74-106) H Calcium Level 11.3 mg/dL (8.6-10.2) H 11.7 mg/dL (8.6-10.2) H Calcium (Send out) Pending Ammonia 47 umol/L (16-60) Total Protein (PEP) Pending Albumin (PEP) Pending Globulin (PEP) Pending Albumin/Globulin Ratio Pending 1.0 (1.0-2.7) Kmxdt-8-Picfviulr Pending Nwqez-0-Yxnfrcsbw Pending Beta Globulins Pending Beta Gamma Globulin Pending PEP Abnormal Protein Bands Pending Protein Electrophoresis Interpret Pending Alpha Fetoprotein Pending Carcinoembryonic Antigen > 1000.0 ng/mL H CA 19-9 Antigen > 1000 U/mL (< 37) H Free Prostate Specific Antigen Pending Percent Free Prostate Specific Ag Pending Prostate Specific Antigen Total Pending Parathyroid Hormone (Intact) Pending Immunoglobulin G Pending Immunoglobulin A Pending Immunoglobulin M Pending Immunofixation Screen Pending Hthn-pwbo-5-Glycoprotein I IgM Ab Pending White Blood Count 15.7 K/UL (4.8-10.8) H Red Blood Count 3.27 M/UL (4.70-6.10) L Hemoglobin 10.0 G/DL (14.2-18.0) L Hematocrit 30.4 % (42.0-52.0) L Mean Corpuscular Volume 93 FL (80-99) Mean Corpuscular Hemoglobin 30.6 PG (27.0-31.0) Mean Corpuscular Hemoglobin Concent 32.9 G/DL (32.0-36.0) Red Cell Distribution Width 14.0 % (11.6-14.8) Platelet Count 244 K/UL (150-450) Mean Platelet Volume 9.3 FL (6.5-10.1) Neutrophils (%) (Auto) 74.7 % (45.0-75.0) Lymphocytes (%) (Auto) 11.4 % (20.0-45.0) L Monocytes (%) (Auto) 13.2 % (1.0-10.0) H Eosinophils (%) (Auto) 0.2 % (0.0-3.0) Basophils (%) (Auto) 0.5 % (0.0-2.0) Magnesium Level 2.0 mg/dL (1.7-2.5) Total Bilirubin 1.0 mg/dL (0.0-1.2) Aspartate Amino Transf (AST/SGOT) 208 U/L (5-40) H Alanine Aminotransferase (ALT/SGPT) 39 U/L (3-41) Alkaline Phosphatase 358 U/L (40-129) H Total Protein 5.0 g/dL (6.6-8.7) L Albumin 2.5 g/dL (3.5-5.2) L Globulin 2.5 g/dL Microbiology Date/Time Source Procedure Growth Status 08/13/16 17:10 Blood Blood Culture - Preliminary NO GROWTH AFTER 24 HOURS Resulted 08/13/16 17:00 Blood Blood Culture - Preliminary NO GROWTH AFTER 24 HOURS Resulted 08/13/16 20:40 Urine,Clean Catch Urine Culture - Preliminary NO GROWTH AFTER 24 HOURS Resulted Intake and Output 08/14/16 08/15/16 19:00 07:00 Intake Total 603.333 ml 928.333 ml Output Total 400 ml 1600 ml Balance 203.333 ml -671.667 ml Intake Oral 60 ml IV Total 603.333 ml 868.333 ml Output Urine Total 400 ml 1600 ml Assessment/Plan Problem List: (1) Syncope (2) Altered mental status (3) Prostate cancer metastatic to pelvis Assessment & Plan: See Onc note. Await CT abdomen/pelvis/chest. (4) Elevated liver function tests (5) UTI (urinary tract infection) Assessment & Plan: Await urine culture results. Cont vanco and cefepime for now. D/C thakkar (6) Sepsis (7) Altered level of consciousness Status: not improved LAMAR HERRING Aug 15, 2016 14:57
[2016-08-15] MEDS ORDERED: Miralax 17gm pkt ORAL ONE (16:00)
[2016-08-15] MEDS ORDERED: Lidocaine 1% MPF 10mg/ml 5ml ONE (18:45)
--- NOTE | 2016-08-15 19:37 | Emergency Room Report ---
History of Present Illness General Chief Complaint: Altered Level of Consciousness Source: Patient Present Illness Allergies: Coded Allergies: No Known Allergies (Unverified , 08/13/16) Nursing Documentation-[facility] Past Medical History: No History, Except For Hx Cancer: Yes Physical Exam Vital Signs Date Time Temp Pulse Resp B/P Pulse Ox O2 Delivery O2 Flow Rate FiO2 08/13/16 16:53 110 21 88/54 97 08/13/16 17:15 101.8 08/13/16 18:29 Nasal Cannula 2.0 08/15/16 17:00 100 Procedures Central Line Central Line : Consent: Emergent Central Line Lumen: triple Maximal Sterile Barrier Tech: yes cap, yes mask, yes sterile gown, yes sterile gloves, yes large sterile sheet, yes hand hygiene, yes chlorhexidine prep Central Line Postion: internal jugular (L) Anesthesia: Lidocaine cc's of anesthesia: 3 Attempts: Other - attempted right femoral and right subclavian without success X2 Patient Tolerated: Well CPR/Code Blue CPR/Code Blue Narrative See code sheet for full medications. Patient was noted to have ROSC. A left subclavian central venous catheter was attempted a prior IV access being obtained. The patient subsequently had a left external jugular central venous catheter placed by me. The patient was noted to have indication for pressor management. Intubation Intubation : Consent: Emergent Intubation Method: orotracheal Tube Size (cm): 7.0 Medications: Other - none Breath Sounds after Intubation: equal Intubation Complications: no complications Post Intubation Xray: Yes Progress/Xray Impression: large amount of emesis in ett Attempts: One Patient Tolerated: Well Complications: None Medical Decision Making Diagnostic Impression: Primary Impression: Altered level of consciousness Additional Impressions: Severe sepsis Dehydration ER Course I was called to evaluate patient after a CODE BLUE. The patient prior to have prior history of metastatic prostate cancer. Patient was noted to have been unresponsive prior to my arrival. The patient was undergoing CPR. The patient was noted to have large amount of dark emesis in his oropharynx. Patient was intubated after direct laryngoscopy x1. The patient was given epinephrine through the ET tube as he had no IV access a peripheral IV was established the patient was subsequently given IV epinephrine. The patient subsequently had a return spontaneous circulation. Last Vital Signs Date Time Temp Pulse Resp B/P Pulse Ox O2 Delivery O2 Flow Rate FiO2 08/15/16 19:19 87 33 100 08/15/16 19:01 72/32 98 Mechanical Ventilator 08/15/16 18:01 97.0 08/13/16 20:55 2.0 Disposition: ADMITTED INPATIENT Condition: Serious Referrals: NOT CHOSEN IPA/,REFERRING (PCP) Barrington Thomas Aug 15, 2016 19:37
[2016-08-15 20:16] LABS: ABG PCO2 48.9 mmHg (35.0-45.0)
[2016-08-15 20:17] LABS: ABG BASE EXCESS -18
[2016-08-15 20:32] LABS: BASOPHILS % (AUTO) 1.2 % (0.0-2.0); EOSINOPHILS % (AUTO) 0.3 % (0.0-3.0); LYMPHOCYTES % (AUTO) 13.6 % (20.0-45.0); MEAN CORPUSCULAR HEMOGLOBIN 30.3 PG (27.0-31.0); MEAN CORPUSCULAR HGB CONC 30.6 G/DL (32.0-36.0); MEAN CORPUSCULAR VOLUME 99 FL (80-99); MONOCYTES % (AUTO) 9.5 % (1.0-10.0); NEUTROPHILS % (AUTO) 75.5 % (45.0-75.0); PLATELET COUNT 198 K/UL (150-450); RED BLOOD COUNT 2.73 M/UL (4.70-6.10); RED CELL DISTRIBUTION WIDTH 14.9 % (11.6-14.8); WHITE BLOOD COUNT 10.9 K/UL (4.8-10.8)
--- NOTE | 2016-08-15 20:38 | Consultation ---
DATE OF CONSULTATION: 08/15/2016 GASTROENTEROLOGY CONSULTATION CHIEF COMPLAINT: Anemia. HISTORY OF PRESENT ILLNESS: The patient is a 61-year-old male with past medical history of metastatic prostate cancer, who was admitted to the hospital. He complained of abdominal pain. According to the patient, he has been suffering from prostate cancer with metastasis to the bone. history of prostatectomy. He is currently getting treatment for prostate cancer. He has complained of constipation, weight loss, and abdominal pain. PAST MEDICAL HISTORY: Significant for history of prostate cancer with bone metastasis. PAST SURGICAL HISTORY: Prostatectomy. MEDICATIONS: Please see medication reconciliation list. ALLERGY: No known allergy. SOCIAL HISTORY: He is a . He lives alone. He smokes cigarettes about one pack per day. Denies any alcohol or drug abuse. FAMILY HISTORY: Noncontributory. REVIEW OF SYSTEMS: A 10-point review of system was performed and pertinent positives in the history of present illness. PHYSICAL EXAMINATION: GENERAL: cachectic-looking male. VITAL SIGNS: Temperature 97.5 degrees, pulse 85, respirations 18, and blood pressure is 116/71. HEENT: Normocephalic and atraumatic. Pale conjunctiva. NECK: Supple. No evidence of lymphadenopathy. CARDIOVASCULAR: Regular rate and rhythm. Plus S1 and S2. No obvious murmur. LUNGS: Decreased breath sounds bilaterally based on the supine exam. ABDOMEN: Soft. Minimal tenderness to acute palpation in the epigastric area. No rebound. No guarding. No peritoneal sign. EXTREMITIES: No cyanosis. No clubbing. No edema. LABORATORY DATA: Sodium 140, potassium 3.9, BUN is 48, and creatinine is 0.8. White count is 15, hemoglobin 10, hematocrit 30, and platelet count is 244,000. ASSESSMENT: This is a 61-year-old male with anemia, history of prostate cancer with metastasis to the bone, elevated CA 19-9 over 1000, abnormal liver function tests, and weight loss. PLAN: The patient most probably has another cancer in addition to his prostate cancer. At this time, the source is unknown. Last colonoscopy according to him five years ago and no active gastrointestinal bleeding at this time. Plan to follow up on the CT scan, which has already been ordered. If the CT shows any liver metastasis, then we will go biopsy for the liver. If there is no obvious source of metastasis, then the patient would need an endoscopy and colonoscopy to evaluate the source of cancer. Randolph Goldman M.D. DR: JENNIFER JOB#: [id number] CC:
[2016-08-15] MEDS ORDERED: Morphine Sulfate 4mg/ml Inj IVP PRN (20:45)
[2016-08-15] MEDS ORDERED: LORazepam Inj 2mg/ml 1ml IV PRN (20:45)
[2016-08-15 20:46] LABS: TROPONIN I 0.73 ng/mL (<=0.30)
[2016-08-15] MEDS ORDERED: Morphine Sulfate 2mg/ml Inj IVP PRN (20:46)
[2016-08-15 20:56] LABS: INR 2.3 (0.9-1.1); PROTHROMBIN TIME 23.5 SEC (9.30-11.50)
[2016-08-15] MEDS ORDERED: Cefepime HCl 1 GM in D5W 110 ML IVPB SCH (21:00)
[2016-08-15] MEDS ORDERED: Miralax 17gm pkt ORAL SCH (21:00)
[2016-08-15 21:37] LABS: CALCIUM 10.3 mg/dL (8.6-10.2); CHLORIDE 98 mEQ/L (98-107); CREATININE 1.9 mg/dL (0.7-1.2); GLOMERULAR FILTRATION RATE 36.3 mL/min (>60)
[2016-08-15 21:45] LABS: ANION GAP 32 (5-15); CARBON DIOXIDE 11 mEQ/L (20-30); POTASSIUM 7.7 mEQ/L (3.4-4.9); SODIUM 141 mEQ/L (135-145)
[2016-08-15 21:46] LABS: ALANINE AMINOTRANSFERASE 801 U/L (3-41); ALBUMIN/GLOBULIN RATIO 0.9 (1.0-2.7); ASPARTATE AMINO TRANSFERASE 4461 U/L (5-40); TOTAL PROTEIN 4.3 g/dL (6.6-8.7)
[2016-08-15 21:58] LABS: ABG ALLEN TEST POSITIVE; ABG BASE EXCESS -21.4; ABG PCO2 32.4 mmHg (35.0-45.0)
[2016-08-15] MEDS ORDERED: Atropine Inj 1mg/10ml Syr ONE (21:59)
[2016-08-15] MEDS ORDERED: Sodium Bicarbonate 8.4% 50ml Inj ONE (21:59)
[2016-08-15] MEDS ORDERED: EPINEPHrine 1mg/10ml carp IV ONE (21:59)
[2016-08-15] MEDS: Vancomycin 750 MG in D5W 275 ML IVPB SCH (22:13)
[2016-08-15 22:27] LABS: BILIRUBIN,DIRECT 1.2 mg/dL (0.1-0.3)
[2016-08-15] MEDS: Sodium Bicarbonate 8.4% 50ml Carp IV SCH (22:37)
[2016-08-15] MEDS ORDERED: Sodium Polystyrene Sulfonate 15gm Powder ORAL ONE (22:45)
[2016-08-16] VITALS (24 sets, daily range): BP systolic 56–98; BP diastolic 10–73
[2016-08-16] MEDS ORDERED: Morphine Sulfate 2mg/ml Inj IVP PRN
[2016-08-16] MEDS: Sodium Bicarbonate 8.4% 50ml Carp IV SCH ×10 (00:37→09:00)
[2016-08-16] MEDS ORDERED: Morphine Sulfate 4mg/ml Inj IVP PRN (00:45)
[2016-08-16] MEDS ORDERED: LORazepam Inj 2mg/ml 1ml IV PRN (00:45)
[2016-08-16] MEDS ORDERED: Mylanta II UD 30ml ORAL PRN (01:15)
[2016-08-16] MEDS ORDERED: Phenylephrine 10mg/ml 5ml vial IV ONE (01:33)
[2016-08-16 03:48] LABS: MEAN CORPUSCULAR HEMOGLOBIN 30.4 PG (27.0-31.0); MEAN CORPUSCULAR HGB CONC 31.3 G/DL (32.0-36.0); MEAN CORPUSCULAR VOLUME 97 FL (80-99); MEAN PLATELET VOLUME 8.7 FL (6.5-10.1); PLATELET COUNT 150 K/UL (150-450); RED BLOOD COUNT 2.32 M/UL (4.70-6.10); RED CELL DISTRIBUTION WIDTH 15.5 % (11.6-14.8); WHITE BLOOD COUNT 4.7 K/UL (4.8-10.8)
[2016-08-16 04:18] LABS: MAGNESIUM 3.6 mg/dL (1.7-2.5); PHOSPHORUS 7.2 mg/dL (2.5-4.8)
[2016-08-16 05:26] LABS: ALBUMIN/GLOBULIN RATIO 0.7 (1.0-2.7); CALCIUM 8.4 mg/dL (8.6-10.2); GLOMERULAR FILTRATION RATE 34.3 mL/min (>60); TOTAL PROTEIN 3.1 g/dL (6.6-8.7)
[2016-08-16 05:28] LABS: POTASSIUM 7.7 mEQ/L (3.4-4.9)
[2016-08-16 05:44] LABS: BILIRUBIN,DIRECT 1.1 mg/dL (0.1-0.3)
[2016-08-16] MEDS: Phenylephrine 50 MG in D5W 245 ML IV SCH (08:05)
--- NOTE | 2016-08-16 08:12 | Emergency Room Report ---
History of Present Illness General Chief Complaint: Altered Level of Consciousness Source: Patient Present Illness Allergies: Coded Allergies: No Known Allergies (Unverified , 08/13/16) Nursing Documentation-H Past Medical History: No History, Except For Hx Cancer: Yes Physical Exam Vital Signs Date Time Temp Pulse Resp B/P Pulse Ox O2 Delivery O2 Flow Rate FiO2 08/13/16 16:53 110 21 88/54 97 08/13/16 17:15 101.8 08/13/16 18:29 Nasal Cannula 2.0 08/15/16 17:00 100 Procedures Critical Care Time Critical Care Time 45 minutes Called to ICU for Code blue 61YO M with known metatastic prostate Ca Already intubated, maxed out on double pressors K remains critically high Coded yesterday Per RN, patient bradycardic down then asystole. BP 80/60 CPR in progress when I arrived. RT disconnected from vent, BVM support to ET Code started at 737am. See Code Blue documentation CC time included discussion with patient's RN, review of chart and labs and discussion with marine mechanic. CPR/Code Blue CPR/Code Blue Narrative Code Blue started 737am 4x epi given 2x calcium given After multiple rounds of CPR and epi, ROSC at 759am with visualized organized cardiac activity at my bedside ultrasound and palpable peripheral pulse Patient reconnected to Vent BP remains low, 57/20. Advised ICU consult Dr Velazquez of situation at 810am Suggested adding Dobutamine pressor Medical Decision Making Diagnostic Impression: Primary Impression: Altered level of consciousness Additional Impressions: Severe sepsis Dehydration Last Vital Signs Date Time Temp Pulse Resp B/P Pulse Ox O2 Delivery O2 Flow Rate FiO2 08/16/16 07:10 83 24 50 08/16/16 06:00 68/50 99 Mechanical Ventilator 08/16/16 04:00 97.8 08/13/16 20:55 2.0 Disposition: ADMITTED INPATIENT Condition: Serious Referrals: NOT CHOSEN ANNABELLE/,REFERRING (PCP) MIKE HAHN M.D. Aug 16, 2016 08:12
[2016-08-16] MEDS ORDERED: Tubing IV Secondary IV ONE (08:14)
[2016-08-16] MEDS ORDERED: Calcium Chloride 10% 10ml carpuject IVP ONE (08:14)
[2016-08-16] MEDS ORDERED: NS 275ml ONE (08:14)
[2016-08-16] MEDS ORDERED: EPINEPHrine 1mg/10ml carp IV ONE (08:14)
[2016-08-16] MEDS ORDERED: Heparin 5000 units/ml inj SUBQ SCH (09:00)
[2016-08-16] MEDS: Cefepime HCl 1 GM in D5W 110 ML IVPB SCH (09:00)
[2016-08-16] MEDS ORDERED: Pantoprazole Inj IV SCH ×2 (09:00)
[2016-08-16] MEDS: Vancomycin 750 MG in D5W 275 ML IVPB SCH (10:00)
--- NOTE | 2016-08-16 11:06 | Diagnostic Imaging Report ---
Indication: Abnormal renal function tests Technique: Grayscale and duplex images of the kidneys, retroperitoneum, and bladder were obtained. Comparison:None Findings: Right kidney measures 12.8 cm in length. Left kidney measures 12.4 cm in length. Both kidneys demonstrate normal echogenicity. No hydronephrosis. No focal abnormality. Normal inferior vena cava. Bladder is empty contains a Mccormick catheter. Incidentally noted are multiple echogenic foci throughout the liver. Impression: Negative for hydronephrosis or other renal pathology Multiple echogenic lesions throughout the liver, worrisome for diffuse involvement with metastatic disease. Correlate with clinical findings and history Empty bladder with Mccormick catheter.
[2016-08-16 12:13] LABS: A/G RATIO 0.8 (0.7-1.7); ABNORMAL PROTEIN BAND 1 Not Observed g/dL (Not Observed); ALBUMIN 2.9 g/dL (2.9-4.4); ALPHA-1 GLOBULIN 0.2 g/dL (0.0-0.4); ALPHA-2 GLOBULIN 0.4 g/dL (0.4-1.0); BETA GLOBULIN 0.9 g/dL (0.7-1.3); GLOBULIN, TOTAL 3.6 g/dL (2.2-3.9); TOTAL PROTEIN 6.5 g/dL (6.0-8.5)
--- NOTE | 2016-08-16 12:48 | Diagnostic Imaging Report ---
Indication: Post intubation Technique: One view of the chest Comparison: 08/13/2016 Findings: Interim endotracheal intubation, endotracheal tube tip in good position approximately 6 cm above the alondra. There is a left jugular central venous catheter, tip which projects at the level of the superior vena cava. No pneumothorax. Lungs and pleural spaces remain clear. Calcified granuloma again demonstrated at the left lung base. The heart size is normal. Impression: Suspect endotracheal intubation Satisfactory left jugular central venous catheter placement, no radiographically evident complication No acute process Evidence of old granulomatous disease This agrees with the preliminary interpretation provided overnight by Dr. Ramos
--- NOTE | 2016-08-16 14:37 | Emergency Room Report ---
History of Present Illness General Chief Complaint: Altered Level of Consciousness Source: Patient Present Illness Allergies: Coded Allergies: No Known Allergies (Unverified , 08/13/16) Nursing Documentation-[facility] Past Medical History: No History, Except For Hx Cancer: Yes Physical Exam Vital Signs Date Time Temp Pulse Resp B/P Pulse Ox O2 Delivery O2 Flow Rate FiO2 08/13/16 16:53 110 21 88/54 97 08/13/16 17:15 101.8 08/13/16 18:29 Nasal Cannula 2.0 08/15/16 17:00 100 Procedures CPR/Code Blue CPR/Code Blue Narrative Called back to ICU again for code blue for this patient Per RN, Bradycardic down to asystole again On bedside sono, no organized cardiac activity No peripheral pulse We did 2x rounds of CPR and 1x additional epi No cardiac contractility or pulse At this point, given history of sepsis, metastatic Ca and poor prognosis with likely low quality of life, decided to call time of , 815am Dr Velazquez informed. Medical Decision Making Diagnostic Impression: Primary Impression: Altered level of consciousness Additional Impressions: Severe sepsis Dehydration Last Vital Signs Date Time Temp Pulse Resp B/P Pulse Ox O2 Delivery O2 Flow Rate FiO2 08/16/16 08:09 57/21 08/16/16 08:05 89 08/16/16 08:00 50 08/16/16 08:00 98.8 23 85 Mechanical Ventilator 08/13/16 20:55 2.0 Disposition: ADMITTED INPATIENT Condition: Referrals: NOT CHOSEN [facility]/,REFERRING (PCP) MIKE HAHN M.D. Aug 16, 2016 14:37
--- NOTE | 2016-08-16 15:31 | Diagnostic Imaging Report ---
Indication: DYSPNEA Technique: One view of the chest Comparison: 08/15/2016 Findings: The lungs and pleural spaces remain clear. Endotracheal the central venous catheter again demonstrated. Interim placement of a nasogastric tube, tip of which projects beyond the edge of the image, presumably well within the stomach. Impression: Interim nasogastric intubation, presumably satisfactory. Otherwise, no significant guide changer one day
[2016-08-16] MEDS ORDERED: Miralax 17gm pkt ORAL PRN (20:30)
[2016-08-16] MEDS ORDERED: Zolpidem 5mg tab ORAL PRN (21:00)
[2016-08-16] MEDS ORDERED: Miralax 17gm pkt ORAL SCH (21:00)
--- NOTE | 2016-08-17 00:11 | Cardiology Report ---
APPROVED REPORT EKG Measurement Heart [id number] KS [id number] [id number] Sinus rhythm with short KS Nonspecific ST abnormality Abnormal ECG
[2016-08-17 01:12] LABS: PSA % FREE 27.1 % (.); PSA FREE 6.99 ng/mL; PSA TOTAL 25.8 ng/mL (0.0-4.0)
[2016-08-17 06:13] LABS: IMMUNOGLOBULIN A 723 mg/dL (90-386); IMMUNOGLOBULIN G 1776 mg/dL (700-1600); IMMUNOGLOBULIN M 336 mg/dL (20-172)
--- NOTE | 2016-08-17 14:17 | Discharge Summary ---
Discharge Summary Hospital Course Date of Admission Aug 13, 2016 at 18:47 Date of Discharge Aug 16, 2016 at 08:15 Admitting Diagnosis severe sepsis, cancer HPI Twin Soriano is a 61 year old male who was admitted on Aug 13, 2016 at 18:47 for Severe Sepsis,Cancer Hospital Course dc summary #[id number] Discharge Discharge Disposition Patient Discharge Diagnoses: Anatoly ([facility]),Meenakshi PRESLEY Aug 17, 2016 14:17
--- NOTE | 2016-08-18 04:37 | Discharge Summary 2 SIG ---
DATE OF ADMISSION: 08/13/2016 DATE OF EXPIRATION: 08/16/2016 REASON FOR ADMISSION: 61-year-old male with a metastatic advanced cancer, stage IV of unknown origin, presumptively prostate cancer, presented with altered level of consciousness. The patient was brought in by paramedics after his neighbors were concerned about his mental and physical status and called paramedics. The patient was previously ambulatory. Workup in the emergency department revealed leukocytosis, elevated lactic acid, hypercalcemia, hypomagnesemia, elevated LFT, and bilirubin. Chest x-ray was negative for any acute cardiopulmonary disease. Urinalysis revealed evidence of urinary tract infection. The patient was transferred to telemetry for further management. ADMITTING DIAGNOSES: 1. Severe sepsis. 2. Dehydration. 3. Acute encephalopathy. 4. Advanced metastatic cancer, stage IV. 5. Possible urinary tract infection. 6. Lactic acidosis. HOSPITAL STAY: The patient was initially admitted to telemetry floor and started on the IV fluids. Renal parameters and electrolytes were closely monitored. Aredia was given. Calcium WAS still high. The patient was started on calcitonin. Magnesium was replaced. Venous duplex of the bilateral lower extremities was negative. Pain management provided. Supplemental oxygen and pulmonary toilet provided as needed. Chest x-ray revealed no acute cardiopulmonary disease. The patient was started on empiric antibiotics. All cultures were up-to-date negative. Leukocytosis possibly was secondary to widespread malignancy since blood culture and urine culture were negative. DVT prophylaxis provided. CT of the chest, abdomen, and pelvis ordered to delineate origin of malignancy. The patient apparently was on hospice services prior to admission and wanted to go back to the hospice afterwards, upon discharge. However, the patient was a Full Code. Renal ultrasound revealed multiple echogenic lesions throughout the liver, worrisome for diffuse involvement with metastatic disease. Negative for hydronephrosis or other renal pathology. Leukocytosis resolved. Nutritional support provided. Market Sales Manager recommended to rule out multiple myeloma and checked the PTH to rule out parathyroid adenoma. An apparent polyclonal gammopathy: IgG, IgA and IgM. Amberley and lambda typing appear increased. Elevated tumor markers: CEA>1000, CA 19-9>1000, PSA-25.8. On 08/15/2016, Hubert Webb was called. The patient required emergency oral intubation and epinephrine was given with return of spontaneous circulation. The patient was transferred to ICU for further management. Blood pressure was low. The patient was started on pressors. The patient was on dose. All labs were critical on 08/15/2016. Elevated troponin - 0.73 intubation, potassium was 7.7, AST 4461, ALT 8001, and troponin 0.73. 08/16/2016, the patient demonstrated acute renal failure with creatinine of 2.0 and BUN of 63. Potassium dangerously high of 7.7, phosphorus high at 7.2, magnesium high at 3.6, significantly elevated AST and ALT, AST 8521 and ALT 1388. Hemoglobin down to 7.0 and hematocrit 22.5. Hepatitis panel negative. Another Code Blue was called on 08/16/2016. The patient was in asystole again. Two rounds of CPR and one additional epinephrine was given. No cardiac contractility. No pulse return at that point. Given history of sepsis, metastatic cancer, poor prognosis, and given the low quality of life, ED physician decided to call time of the at 8:15 hours. Cause of - cardiopulmonary arrest. FINAL DIAGNOSES: 1. Severe sepsis. 2. Dehydration. 3. Acute encephalopathy. 4. Shock. 5. Hyperkalemia. 6. Hypercalcemia of malignancy. 7. Advanced metastatic cancer stage IV, presumptively prosthetic with liver involvement. 8. Elevated liver enzymes. 9. Shock liver. 10. Metastatic liver disease. 11. Acute hypoxemic respiratory failure requiring intubation on 08/15/2016. 12. Status post Code Blue on 08/15/2016 resulting in the oral intubation and successful resuscitation. 13. Status post Code Blue on 08/16/2016 for cardiopulmonary arrest. 14. Elevated tumor markers. 15. Leukocytosis mAado Scott M.D. I have been assigned to dictate discharge summary on this account and I was not involved in the patient's management. Meenakshi WalshCatskill Regional Medical Centerkaren N.P. DR: MICHELLE JOB#: [id number] CC: BROOKS
[2016-08-18 08:53] LABS: CALCIUM 8.3 mg/dL (8.6-10.2); PTH INTACT <6 pg/mL (15-65)
== END 2016-08-16 08:15 | disposition expired | DRG 720 ==
LOC: ENRESERVDT → ENRESERVTM → EDBD 16:57 → EMR 17:14 → 2E 18:47 → EDBEDREQ 19:59 → 4W 08-14 18:47 → ICU 08-15 18:00
PROC: 5A1935Z Respiratory Ventilation, Less than 24 Consecutive Hours (ICD-10-PCS; principal; 2016-08-15)
PROC: 0BH17EZ Insertion of Endotracheal Airway into Trachea, Via Natural or Artificial Opening (ICD-10-PCS; 2016-08-15)
PROC: 5A12012 Performance of Cardiac Output, Single, Manual (ICD-10-PCS; 2016-08-15)
PROC: 05HQ33Z Insertion of Infusion Device into Left External Jugular Vein, Percutaneous Approach (ICD-10-PCS; 2016-08-15)
DX: A41.9 Sepsis, unspecified organism (principal); J96.01 Acute respiratory failure with hypoxia; R57.9 Shock, unspecified; K72.00 Acute and subacute hepatic failure without coma; G93.40 Encephalopathy, unspecified; C78.7 Secondary malignant neoplasm of liver and intrahepatic bile duct; E83.52 Hypercalcemia; E86.0 Dehydration; N17.9 Acute kidney failure, unspecified; N39.0 Urinary tract infection, site not specified; I46.9 Cardiac arrest, cause unspecified; C61 Malignant neoplasm of prostate; R65.20 Severe sepsis without septic shock; E87.5 Hyperkalemia; F17.200 Nicotine dependence, unspecified, uncomplicated; C79.51 Secondary malignant neoplasm of bone; Z79.899 Other long term (current) drug therapy
CPT/HCPCS: 36415; 36600; 71010; 76775; 80048; 80053; 80061; 80202; 81003; 82105; 82140; 82248; 82378; 82436; 82533; 82550; 82553; 82784; 82803; 83036; 83605; 83735; 83930; 83970; 84100; 84133; 84153; 84154; 84165; 84300; 84439; 84443; 84484; 84550; 85007; 85025; 85379; 85610; 85651; 85730; 86146; 86301; 86334; 86705; 86709; 86803; 86850; 86900; 86901; 86920; 87040; 87086; 87340; 89050; 92950; 93005; 94002; 94664; J0171; J2370; J2430